=== PATIENT | male | born 1970 | race African-American/Black ===

== ENCOUNTER 2017-01-24 13:54 | Emergency (ER) | payer MEDICAID ==
[~2017-01-24] VITALS: Ht 170.2 cm; Wt 75.0 kg
[~2017-01-24 13:54] MED LIST: BABY ASPIRIN; HYDROCHLOROTHIAZIDE; LISINOPRIL; SIMVASTATIN
[2017-01-24 13:58] VITALS: BP 143/108
[2017-01-24] MEDS ORDERED: ARIP2TAB3 PO (14:02)
[2017-01-24] MEDS ORDERED: TRAZ-129 PO (14:02)
== END 2017-01-24 15:03 | disposition home or self-care (01) ==
LOC: ER 14:49
DX: T40.991A Poisoning by other psychodysleptics [hallucinogens], accidental (unintentional), initial encounter (principal); Y92.89 Other specified places as the place of occurrence of the external cause; F16.129 Hallucinogen abuse with intoxication, unspecified; I10 Essential (primary) hypertension
CPT/HCPCS: 99283

== ENCOUNTER 2017-03-27 19:37 | Emergency (ER) | payer MEDICAID ==
[~2017-03-27] VITALS: Ht 172.7 cm; Wt 80.0 kg
[~2017-03-27 19:37] MED LIST changes: +ARIP2TAB3 PO; +TRAZ-129 PO
[2017-03-27] MEDS ORDERED: LORAZEPAM 2MG/ML CPJ IV ONE (20:15)
[2017-03-27] MEDS ORDERED: LORAZEPAM 2MG/ML CPJ IV STA (20:21)
[2017-03-27] MEDS ORDERED: SODIUM CHLORIDE 0.9% 1,000 ML IV ONE ×2 (20:21→22:24)
[2017-03-27 20:42] LABS: BASOPHILS % 0.5 % (0.0-2.0); EOSINOPHILS % 0.5 % (0.0-5.0); HEMATOCRIT. 45.9 % (42.0-52.0); HEMOGLOBIN. 15.8 g/dL (14.0-18.0); LYMPHOCYTES % 26.9 % (20.0-50.0); MEAN CORPUSCULAR HEMOGLOBIN 31.3 pg (28.0-32.0); MEAN CORPUSCULAR VOLUME 90.9 fL (80.0-94.0); MEAN PLATELET VOLUME 8.1 fl (7.4-10.4); MONOCYTES % 6.3 % (2.0-8.0); NEUTROPHILS % 65.8 % (40.0-76.0); PLATELET 250 x1000/uL (130-400); RED BLOOD CELL COUNT 5.05 mill/uL (4.7-6.1); RED CELL DISTRIBUTION WIDTH 12.9 % (11.6-14.6)
[2017-03-27 20:52] LABS: AMMONIA < 25 uMol/L (<32)
[2017-03-27 20:58] LABS: *AMPHETAMINES SCREEN URINE NEGATIVE (NEGATIVE); *BARBITURATES SCREEN URINE NEGATIVE (NEGATIVE); *BENZODIAZEPINES SCREEN URINE NEGATIVE (NEGATIVE); *COCAINE SCREEN URINE NEGATIVE (NEGATIVE); CANNABINOID URINE SCREEN NEGATIVE (NEGATIVE); METHADONE URINE SCREEN NEGATIVE (NEGATIVE); OPIATES URINE SCREEN NEGATIVE (NEGATIVE); PHENCYCLIDINE URINE SCREEN NEGATIVE (NEGATIVE)
[2017-03-27 21:00] LABS: CARBON DIOXIDE 23 mEq/L (21-32); CHLORIDE 104 mEq/L (98-107); CREATINE KINASE 390 IU/L (39-308); ETHANOL BLOOD 39 mg/dL; TROPONIN I < 0.02 ng/mL (0.00-0.04)
[2017-03-27] MEDS ORDERED: LEVOFLOXACIN 750MG PREMIX 150 ML IV ONE (21:15)
[2017-03-27] MEDS ORDERED: SODIUM CHLORIDE 0.9% 1000ML BAG (SEPSIS BOLUS) IV ONE (21:15)
[2017-03-27 23:26] VITALS: BP 167/107
[2017-03-28] MEDS ORDERED: POTASSIUM BICARB/CIT ACID 25 MEQ TABLET.EFF PO ONE (01:30)
[2017-03-28] MEDS ORDERED: DEXT 5%/0.45% NACL KCL 10MEQ/L 1,000 ML IV SCH (05:21)
[2017-03-28] MEDS ORDERED: CLONIDINE 0.1MG TABLET PO PRN (05:30)
[2017-03-28] MEDS ORDERED: MAGNESIUM/ALUMINUM HYDROXIDE/SIMETHICONE 30ML UDC PO PRN (05:30)
[2017-03-28] MEDS ORDERED: LORAZEPAM 0.5MG TABLET PO PRN (05:30)
[2017-03-28] MEDS ORDERED: DIPHENHYDRAMINE 50MG/ML VIAL IV PRN (05:30)
[2017-03-28] MEDS ORDERED: LORAZEPAM 2MG/ML CPJ IV PRN (05:30)
[2017-03-28] MEDS ORDERED: DOCUSATE SODIUM 100MG CAPSULE PO PRN (05:30)
[2017-03-28] MEDS ORDERED: GUAIFENESIN 200MG/10ML SUGAR FREE UDC PO PRN (05:30)
[2017-03-28] MEDS ORDERED: ACETAMINOPHEN 325MG TABLET PO PRN (05:30)
[2017-03-28] MEDS ORDERED: IPRATROPIUM/ALBUTEROL 0.5-3(2.5)MG/3ML NEB INH PRN (05:30)
[2017-03-28] MEDS ORDERED: LEVOFLOXACIN 500MG PREMIX 100 ML IV SCH (05:30)
[2017-03-28] MEDS ORDERED: HYDROCODONE/ACETAMINOPHEN 5/325MG TABLET PO PRN (05:30)
[2017-03-28] MEDS ORDERED: ONDANSETRON HCL 4MG/2ML VIAL IV PRN (05:30)
[2017-03-28] MEDS ORDERED: ENOXAPARIN 40MG/0.4ML SYR SUBCUT SCH (09:00)
[2017-03-28] MEDS ORDERED: ASPIRIN 81MG EC TABLET PO SCH (09:00)
[2017-03-28] MEDS ORDERED: HYDROMORPHONE HCL/PF 2MG/ML CPJ IV PRN (18:00)
[2017-03-28] MEDS ORDERED: NA PHOS,M-B/NA PHOS,DI-BA ENEMA 118ML PR PRN (20:00)
== END 2017-03-28 01:45 | disposition home or self-care (01) ==
LOC: ER 19:47 → CANRESERV 03-28 07:00 → ENRESERV 03-28 07:00 → CANBEDREQ 03-29 16:09
DX: F10.129 Alcohol abuse with intoxication, unspecified (principal); E86.0 Dehydration; E87.6 Hypokalemia; E87.2 Acidosis; F16.10 Hallucinogen abuse, uncomplicated; I10 Essential (primary) hypertension; Y90.1 Blood alcohol level of 20-39 mg/100 ml
CPT/HCPCS: 36415; 70450; 71010; 80053; 80305; 80307; 80329; 82140; 82550; 83605; 83690; 83880; 84443; 84484; 85025; 87040; 87086; 93005; 96361; 96365; 96366; 96375; 99291; G0482; J1956; J2060; J7030; Z7610

== ENCOUNTER 2017-11-28 19:09 | Emergency (ER) | payer MEDICAID ==
[~2017-11-28] VITALS: Ht 180.3 cm; Wt 80.0 kg
[~2017-11-28 19:09] MED LIST changes: -TRAZ-129 PO; +TRAZ-212 PO
[2017-11-28 21:21] VITALS: BP 140/82
== END 2017-11-28 21:23 | disposition home or self-care (01) ==
LOC: ER 19:09
DX: F16.188 Hallucinogen abuse with other hallucinogen-induced disorder (principal); I10 Essential (primary) hypertension
CPT/HCPCS: 93005; 99283

== ENCOUNTER 2018-09-16 11:58 | Emergency (ER) | payer MEDICAID ==
[~2018-09-16] VITALS: Ht 160 cm; Wt 74.0 kg
[2018-09-16 12:00] VITALS: BP 138/85
[2018-09-16] MEDS ORDERED: SODIUM CHLORIDE 0.9% 1,000 ML IV ONE (12:10)
== END 2018-09-16 12:37 | disposition left against medical advice (07) ==
LOC: ER 12:04
DX: T40.991A Poisoning by other psychodysleptics [hallucinogens], accidental (unintentional), initial encounter (principal); G92 Toxic encephalopathy; F32.9 Major depressive disorder, single episode, unspecified; I10 Essential (primary) hypertension; F17.210 Nicotine dependence, cigarettes, uncomplicated; F15.10 Other stimulant abuse, uncomplicated; Y92.488 Other paved roadways as the place of occurrence of the external cause
CPT/HCPCS: 99283; J7030; Z7610

== ENCOUNTER 2018-09-16 13:37 | Emergency (ER) | payer MEDICAID ==
[~2018-09-16] VITALS: Ht 162.6 cm; Wt 40.0 kg
[2018-09-16 13:42] VITALS: BP 157/98
== END 2018-09-16 14:46 | disposition home or self-care (01) ==
LOC: ER 13:41
DX: T40.7X1A Poisoning by cannabis (derivatives), accidental (unintentional), initial encounter (principal); F32.9 Major depressive disorder, single episode, unspecified; I10 Essential (primary) hypertension; F15.10 Other stimulant abuse, uncomplicated; Y92.89 Other specified places as the place of occurrence of the external cause
CPT/HCPCS: 99283

== ENCOUNTER 2019-11-18 09:14 | Emergency (ER) | payer MEDICAID ==
[~2019-11-18] VITALS: Ht 172.7 cm; Wt 73.0 kg
[~2019-11-18 09:14] MED LIST changes: -TRAZ-212 PO; +TRAZ-251 PO
[2019-11-18 12:32] LABS: BASOPHILS % 0.3 % (0.0-2.0); EOSINOPHILS % 0.5 % (0.0-5.0); HEMATOCRIT. 40.5 % (42.0-52.0); HEMOGLOBIN. 13.8 g/dL (14.0-18.0); LYMPHOCYTES % 20.2 % (20.0-50.0); MEAN CORPUSCULAR VOLUME 94.2 fL (80.0-94.0); MEAN PLATELET VOLUME 8.4 fl (7.4-10.4); MONOCYTES % 10.4 % (2.0-8.0); NEUTROPHILS % 68.6 % (40.0-76.0); PLATELET 316 x1000/uL (130-400); RED CELL DISTRIBUTION WIDTH 12.6 % (11.6-14.6)
[2019-11-18 12:37] LABS: CHLORIDE 105 mEq/L (98-107)
[2019-11-18] MEDS ORDERED: MORPHINE SULFATE 4 MG/ML CPJ (NOT FOR IM USE) IV ONE (14:30)
[2019-11-18] MEDS ORDERED: INSULIN REGULAR (HUMULIN R) 300UNITS/3ML IV NR (14:30)
[2019-11-18] MEDS ORDERED: DEXTROSE 50% WATER 50ML SYRINGE IV NR (14:30)
[2019-11-18] MEDS ORDERED: CALCIUM GLUCONATE 1,000 MG in DEXTROSE 5% WATER 50 ML IV NR (15:00)
[2019-11-18] MEDS ORDERED: FUROSEMIDE 100MG/10ML VIAL IV NR (15:00)
[2019-11-18 15:50] VITALS: BP 115/72
== END 2019-11-18 16:36 | disposition home or self-care (01) ==
LOC: ER 09:14 → CANBEDREQ 16:50
DX: S42.101A Fracture of unspecified part of scapula, right shoulder, initial encounter for closed fracture (principal); S70.312A Abrasion, left thigh, initial encounter; S60.511A Abrasion of right hand, initial encounter; I10 Essential (primary) hypertension; F15.10 Other stimulant abuse, uncomplicated; Z79.899 Other long term (current) drug therapy; V49.88XA Car occupant (driver) (passenger) injured in other specified transport accidents, initial encounter; Y93.89 Activity, other specified; Y92.89 Other specified places as the place of occurrence of the external cause; Y99.8 Other external cause status
CPT/HCPCS: 36415; 71250; 73010; 73030; 73630; 80053; 85025; 96374; 99285; J0610; J2270; J7060; Z7610; L3670

== ENCOUNTER 2019-12-09 18:24 | Emergency (ER) | payer MEDICAID ==
[~2019-12-09] VITALS: Ht 172.7 cm; Wt 73.0 kg
[2019-12-09 18:28] VITALS: BP 142/68
[2019-12-09] MEDS ORDERED: HYDROCODONE/ACETAMINOPHEN 5/325MG TABLET PO STA (19:04)
== END 2019-12-09 20:05 | disposition home or self-care (01) ==
LOC: ER 18:24
DX: M79.671 Pain in right foot (principal); M25.511 Pain in right shoulder; F15.10 Other stimulant abuse, uncomplicated; E78.00 Pure hypercholesterolemia, unspecified; I10 Essential (primary) hypertension
CPT/HCPCS: 99283

== ENCOUNTER 2023-03-31 23:27 | Emergency (ER) | payer OTHER ==
[~2023-03-31] VITALS: Ht 160 cm; Wt 60.0 kg
[~2023-03-31 23:27] MED LIST changes: +AMLO10TA80 PO; -ARIP2TAB3 PO; -BABY ASPIRIN; +GABA-532 PO; +HYDR-4001 MT; -HYDROCHLOROTHIAZIDE; +KEPP500 PO; -LISINOPRIL; +LURA40TA4 PO; +PARO30TA62 PO; +QUET100T34 PO; -SIMVASTATIN; +TAMS-11 PO; -TRAZ-251 PO
[2023-03-31 23:30] VITALS: BP 133/58; PULSE 88; RESP 16; O2SAT 100
== END 2023-03-31 23:43 ==
LOC: ER 23:39
DX: Z00.00 Encounter for general adult medical examination without abnormal findings (principal); I10 Essential (primary) hypertension; Z79.899 Other long term (current) drug therapy
CPT/HCPCS: 99283